=== PATIENT | female | born 1960 ===

== ENCOUNTER → 2020-05-20 | Outpatient (CLI) | payer OTHER ==
[~2020-05-20] VITALS: Ht 167.6 cm; Wt 65.8 kg
[~2020-05-20] MED LIST: APAP W/CODEINE1 TA2 PO; DULOXETINE HCL30 MG PO; ESOMEPRAZOLE MA40 MG PO; INDOMETHACIN 5050 M1 PO; LASIX 40 MG TAB40 MG PO; SPIRONOLACTONE100 M1 PO; VALIUM5 MG PO
[2020-05-20 14:12] VITALS: BP 117/81
--- NOTE | 2020-05-20 14:48 | NUR ---
Pain Clinic Assessment: 1. History of Osteoarthritis: NONE History of Rheumatoid Arthritis: NONE 2. Height: 5 ft. 6 in. 167.6 cm. Weight: 145.0 lb. oz. 65.772 kg. Patient's BMI: 23.4 3. Vital Signs: BP: 117/81 Pulse: 83 Resp: 14 Temp: 02 Sat: 100 ECG Mon: 4. Pain Intensity: 5-6 5. Fall Risk: Dizziness: N Needs help standing or walking: N Fallen in the last 3 months: N Fall risk comments: 6. Patient on Blood Thinner: None 7. History of Hypertension: N 8. Opioid Therapy greater than 6 weeks: N Opiate Contract Signed: 9. Risk Assessment Tool Provided: 10. Functional Assessment Tool: 11. Recreational Drug Use: Never Drug Type: Tobacco Use: Current Every Day Smoker Tobacco Type: Cigarettes Amount or Packs/day: 0.5 How Many Years: 40 Alcohol Use: No Frequency: Quant:
--- NOTE | 2020-05-21 11:53 | HPC ---
[facility] [place] [address] [address] PAIN MANAGEMENT CONSULTATION Name: EBONI CONNER Room #: REG RADHA PrinceJerelHilariaJerel#: [id number] Admission: 05/20/20 Attend Phys: Curt Howard DO Discharge: Date of : 60 Report #: [id number] THIS REPORT FOR: cc: AMARILIS BAUMAN Physician not on staff Curt Howard DO ~ DATE OF SERVICE: 05/20/2020 REFERRING PHYSICIAN: Domingo Ruiz MD; [facility]surgery [facility]. CHIEF COMPLAINT: Right thoracic pain. HISTORY OF PRESENT ILLNESS: As you know, the patient is a 60-year-old female who reports acute onset of mid thoracic pain that occurred 04/13/2019. The patient states she sustained a slip and fall injury at work. She was found to have thoracic compression fractures and underwent injection therapies with Dr. Ramirez with minimal benefit. She underwent radiofrequency lesioning, but reports that she did not undergo medial branch nerve blocks prior to the lesioning procedure. She ultimately underwent thoracic kyphoplasty at T10 in January with no improvement in symptoms. She sought further evaluation through Neurosurgery per the request of Dr. Ramirez. The patient states that she has trialed all available conservative treatment options including physical therapy. She is currently in an Jolon thoracic brace, which does afford her some improvement in symptoms. She has been referred to our service to discuss the potential for treating right thoracic pain that remains. There is a question of whether or not the facet joints at the T7 through T10 level may be the source of her symptoms on the right side. The patient indicates today her pain is steady with intermittent exacerbations and periodic increase in pain. She describes the pain as shooting, cramping, crushing and stabbing, places current pain score 4/10, daily average of 4-5/10, worst pain has been is 10/10. The patient states that pain is exacerbated with standing, sitting for any length of time or walking, improves with lying down and the use of diazepam for her reported muscle spasming. She has been referred to our service to discuss interventional treatment options to address mid thoracic right sided pain. PAST MEDICAL HISTORY: 1. Chronic liver disease. 2. Osteoporosis. 3. Muscle spasms. PAST SURGICAL HISTORY: 1. Herniorrhaphy 2017. 2. section in 1989 and 1993. 3. T10 kyphoplasty. [address] [address] PAIN MANAGEMENT CONSULTATION Name: EBONI CONNER Room #: REG RADHA Quynh#: [id number] Admission: 05/20/20 Attend Phys: Curt Howard DO Discharge: Date of : 60 Report #: [id number] SOCIAL HISTORY: The patient smokes half a pack of tobacco per day and has done so for greater than 40 years. Denies IV or illicit drug use. Denies any chronic alcohol use. 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 She is on workmen's compensation. She is in litigation in regard to her symptoms. She is unaccompanied at today's visit. REVIEW OF SYSTEMS: Positive for weight change, fatigue and weakness, depression, muscle spasms, chronic right mid thoracic pain. All other review of systems negative per 12-point review of systems other than those listed in history of present illness. Pain impact score of 14/70 indicating mild interference of daily activities secondary to pain. ALLERGIES: OPIOID MEDICATIONS. CURRENT MEDICATIONS: Spironolactone 100 mg once a day, furosemide 40 mg once a day, indomethacin 50 mg once a day, omeprazole 40 mg once a day, duloxetine 30 mg once a day, diazepam 5 mg p.r.n., Tylenol No. 3 with Codeine 1 tab every 8 hours p.r.n. for pain. IMAGING: MRI of the thoracic spine obtained 04/24/2020 shows mild chronic compression fractures at T4 and T7 without significant height loss. There is a chronic compression fracture at T8 resulting in approximately 60% height loss. There is minimal retropulsion without significant adjacent spinal canal narrowing. There is a vertebral augmentation at T10 with restored right side T10 vertebral body height, approximately 33% loss of left side height. There is mild retropulsion of the fracture resulting in mild narrowing of the spinal cord. There is chronic compression fracture at T11 resulting in about 50% height loss. No significant associated retropulsion. No acute fractures in the thoracic vertebrae. There is Schmorl's nodes present involving the superior endplate of T7, inferior endplate of T8, inferior endplate of T11, inferior endplate of T12 and the superior endplate of L1. No osteolytic lesions noted. There is dextroscoliosis of the thoracic spine noted. PHYSICAL EXAMINATION: VITAL SIGNS: Blood pressure 117/81, pulse 83, respiratory rate 14 and unlabored. The patient is 100% on room air. Height 5 feet 6 inches tall, weight 145 pounds, BMI calculated 23.4. GENERAL: Well-developed, well-nourished, well-hydrated 60-year-old female appearing her stated age. She is in no acute distress, awake, alert and oriented x 3. Current pain score is rated at 5-6/10. HEENT: Normocephalic, atraumatic. Pupils are round, and responsive. The patient deemed a good historian. She is wearing a mask in compliance with COVID-[address] [facility] [address] [place] [address] PAIN MANAGEMENT CONSULTATION Name: EBONI CONNER Room #: REG [facility] Juan.#: [id number] Admission: 05/20/20 Attend Phys: Curt Howard DO Discharge: Date of : 60 Report #: [id number] LUNGS: Appear clear, though there is a prolonged expiratory phase. CARDIOVASCULAR: Regular. No appreciable gallop, no rub. ABDOMEN: Soft, nontender. EXTREMITIES: Show no clubbing, no cyanosis, and no edema. MUSCULOSKELETAL: Upper and lower extremity strength appears equal and symmetrical 5/5. Muscle bulk and tone is equal and symmetrical in comparing upper extremities and the lower extremities. She is intact to light touch from T1 through T12 dermatomes. Reflexes appear 2+/4 at biceps, brachioradialis and triceps, again 2+/4 at patella and Achilles. There is tenderness to palpation over the right mid thoracic area. There is Jolon thoracic brace in place. There is moderate thoracic kyphosis noted upon removal of the thoracic brace. There is tenderness to palpation from the right mid thoracic area towards the medial scapula on the right. Deep palpation in area causes intensification of pain consistent with myofascial symptoms. ASSESSMENT: 1. Chronic thoracic pain. 2. Myofascial pain. PLAN: 1. Based on today's physical exam and the history the patient has provided, the description the patient uses in regard to pain, it would appear her symptoms may be related to the facet joints at T7, T8 and T9 with possible addition of T10. The patient has difficulty locating the specific source of symptoms as she has palpatory tenderness throughout the distribution of these vertebral bodies, specifically over the lateral of the transverse processes and out on the associated ribs. Her symptoms based on her descriptors and distribution does not appear to be radicular in origin. I do not believe there is any costal nerve root impingement as the patient does not describe the symptoms in a neuropathic fashion. The distribution is more myofascial in origin consistent with facet arthropathy of the thoracic spine and myofascial underlying discomfort. We discussed with the patient the treatment options we have available. Following was discussed with the patient today. We discussed physical therapy, stretching exercises and core strengthening techniques as well as treatment to address the accentuated thoracic kyphosis the patient is noted to have. We discussed suggestions in medication management to utilize either neuropathic pain medication such as amitriptyline, nortriptyline, Cymbalta, Lyrica or gabapentin to address symptoms directly as well as the patient could discuss with her PCP about initiating an anxiolytic such as diazepam, which apparently the patient reported as effective. We discussed the injections that Dr. Ruiz requested, which are the intra-articular facet injections on the right side to address level T7, T8, T9 and possibly T10. We also discussed surgical options, though given the findings on physical exam and the lack of any major findings at the level, I do not feel this is a treatment option. After reviewing risks and benefits of all proposed treatment options, [address] [address] PAIN MANAGEMENT CONSULTATION Name: EBONI CONNER Room #: REG RADHA Beauchamp#: [id number] Admission: 05/20/20 Attend Phys: Curt Howard DO Discharge: Date of : 60 Report #: [id number] the patient chose to move forward with the intra-articular facet injections. We discussed with the patient that [employer] pay[employer] restrictions require that authorization be obtained before the patient could undergo right T7, T8, T9, T10, facet injections. We will begin the authorization process and have the patient return once this has been approved. We are hopeful that we will have this authorization quickly and be able to provide these to the patient in a timely manner. 2. No medication changes made at today's visit. We did make suggestions in medication management, but the patient will need a primary care physician to fill those therapies. She does report the diazepam was very effective at providing benefit for her back symptoms, which is consistent with myofascial pain. I have no concern that the patient remain on diazepam, though she will need to receive these through her primary care physician or her workmen's compensation physician. 3. We will see the patient back in followup visit for the injections proposed by Dr. Ruiz in hopes of improving pain in this patient's case. We are hopeful we will obtain long-term benefit with these procedures. 4. We wish to thank Dr. Ruiz for the referral of this patient to our clinic. We will keep you apprised of her response to treatment as we address thoracic facet arthropathy and overlying myofascial pain. Again, we wish to thank you for the opportunity to see the patient in consultation. <ELECTRONICALLY SIGNED> By: Curt Howard DO 05/21/20 1153 [id number] 1704 Curt Howard DO /nt
== END ==
LOC: PAIN 05-14 10:50
PROVIDERS: ATTEND Anesthesiology Pain Medicine
DX: M54.6 Pain in thoracic spine (principal); M79.10 Myalgia, unspecified site; Z88.8 Allergy status to other drugs, medicaments and biological substances; Z79.899 Other long term (current) drug therapy

== ENCOUNTER → 2020-06-03 | Outpatient (CLI) | payer OTHER ==
[~2020-06-03] VITALS: Ht 167.6 cm; Wt 73.0 kg
[2020-06-03 11:05] VITALS: BP 109/81
--- NOTE | 2020-06-03 11:17 | NUR ---
Pain Clinic Assessment: 1. History of Osteoarthritis: NONE History of Rheumatoid Arthritis: NONE 2. Height: 5 ft. 6 in. 167.6 cm. Weight: 161.0 lb. oz. 73.029 kg. Patient's BMI: 26.0 3. Vital Signs: BP: 109/81 Pulse: 84 Resp: 16 Temp: 02 Sat: 98 ECG Mon: 4. Pain Intensity: 4 5. Fall Risk: Dizziness: N Needs help standing or walking: N Fallen in the last 3 months: N Fall risk comments: 6. Patient on Blood Thinner: None 7. History of Hypertension: N 8. Opioid Therapy greater than 6 weeks: N Opiate Contract Signed: 9. Risk Assessment Tool Provided: 10. Functional Assessment Tool: 11. Recreational Drug Use: Never Drug Type: Tobacco Use: Current Every Day Smoker Tobacco Type: Cigarettes Amount or Packs/day: 1/2 PACK How Many Years: Alcohol Use: No Frequency: Quant:
--- NOTE | 2020-06-04 10:35 | HPC ---
[facility] [place] [address] PAIN MANAGEMENT CONSULTATION Name: EBONI CONNER Room #: REG RADHA MartinezJerel#: [id number] Admission: 06/03/20 Attend Phys: Curt Howard DO Discharge: Date of : 60 Report #: [id number] THIS REPORT FOR: cc: AMARILIS BAUMAN Physician not on staff Curt Howard DO ~ DATE OF SERVICE: 06/03/2020 CHIEF COMPLAINT: Right thoracic pain. HISTORY OF PRESENT ILLNESS: As you know, the patient is a 60-year-old female reporting acute onset of mid thoracic pain occurred on 04/13/2019. The patient states she sustained a slip and fall injury at work. She was found to have thoracic compression fractures, underwent an injection therapies with Dr. Ramirez with minimal benefit. She underwent radiofrequency lesioning, but reports that she did not undergo medial branch nerve blocks prior to lesioning procedure. She states no improvement in symptoms with that treatment. She was placed in the Vandiver brace and discharged back to her PCP for further evaluation. The patient sought evaluation with Dr. Ruiz who referred the patient on to our clinic to trial facet injections of the T8, T9 and T10 levels to determine if her source of symptoms are related to the facet joints. She returns today with authorization to undergo T8, T9 and T10 facet injections on the right side. ALLERGIES: OPIOID MEDICATIONS. CURRENT MEDICATIONS: Spironolactone 100 mg once a day, furosemide 40 mg once a day, indomethacin 50 mg once a day, omeprazole 40 mg once a day, duloxetine 30 mg once a day, diazepam 5 mg p.r.n., Tylenol No. 3 with Codeine one tablet every 8 hours p.r.n. pain. SOCIAL HISTORY: The patient smokes half pack tobacco per day, has done so for greater than 40 years. Denies IV or illicit drug use. Denies any chronic alcohol use. 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 She is unaccompanied today. IMAGING: No new imaging available. PHYSICAL EXAMINATION: VITAL SIGNS: Blood pressure 109/81, pulse is 84, respiratory rate 16 and unlabored. The patient 98% on room air. Height 5 feet 6 inches tall, weight 161 pounds and BMI calculated 26.0. GENERAL: Well-developed, well-nourished, well-hydrated 60-year-old female appearing stated age, pain is rated today 4/10. HEENT: Normocephalic and atraumatic. The patient is wearing a mask in compliance with COVID-19 regulations. EXTREMITIES: Show no clubbing, no cyanosis, and no edema. [address] [address] PAIN MANAGEMENT CONSULTATION Name: EBONI CONNER [id number] Admission: 06/03/20 Attend Phys: Curt Howard DO Discharge: Date of : 60 Report #: [id number] MUSCULOSKELETAL: Intact to light touch from T1 through T12 dermatomes. Reflexes appear equal and symmetrical in upper and lower extremities. The patient is not wearing an Vandiver brace today, moderate thoracic kyphosis noted. Palpatory tenderness over the right mid thoracic area consistent with the patient's pains area. ASSESSMENT: 1. Chronic thoracic pain. 2. Myofascial pain. 3. Chronic intractable pain. PLAN: 1. The patient returns today in followup visit having received authorization to undergo right T8, T9 and T10 intra-articular facet injections per the request of her neurosurgeon. The patient and I discussed at length today the risks and the benefits of this procedure. These risks include but are not necessarily limited to bleeding, bruising, infection, worsening pain, no relief of pain, also risk of temporary or permanent muscle weakness, temporary or permanent nerve damage, possible paralysis and . The patient states understood and wished to proceed. 2. No medication changes made at today's visit. The patient will continue current medical therapy as prior prescribed. 3. We plan to see the patient back in followup visit on an as needed basis for possible next in the series of intra-articular facet injections. We are hopeful the patient will see good and prolonged benefit with today's procedure. PROCEDURE NOTE DESCRIPTION OF PROCEDURE: Right T8, T9, T10 intra-articular facet injections under fluoroscopic guidance. After obtaining written consent, the patient was taken back to fluoroscopy suite, placed in prone position with a pillow under the chest to accentuate the thoracic kyphosis. The skin overlying the thoracic area was then prepped and draped in aseptic fashion. The T8 facet joint, T9 facet joint and the T10 facet joint on the right side were visualized under AP fluoroscopy with a caudal angulation. Skin and subcutaneous tissue overlying target sites of injections were then anesthetized with 2 mL of 1% lidocaine at each site utilizing a 27-gauge 1-1/4 inch needle. Three 22-gauge 3-1/2 inch spinal needles with bent tips were advanced under fluoroscopic guidance using a superior, inferior, lateral to medial approach to the facet joint. This was done under fluoroscopic guidance. The firm posterior capsules had their characteristic feels and the needles were then advanced into the facet joint, but not into the articular cartilage. After negative aspiration for heme, 1.5 mL of a solution containing 2 mL 40 mg per mL, 80 mg [facility] [address] [place] [address] PAIN MANAGEMENT CONSULTATION Name: ARGENTINA CONNERJORIE Room #: REG [facility] Quynh#: [id number] Admission: 06/03/20 Attend Phys: Curt Howard DO Discharge: Date of : 60 Report #: [id number] total triamcinolone and 3 mL of bupivacaine 0.5% was injected slowly. Needle retracted mcfp, flushed with 1 mL of 1% lidocaine and removed. Sterile bandage placed over each of the injection sites. There were no new motor deficits present in the upper or lower extremities following procedure. The patient tolerated the procedure well, carefully escorted to recovery room in stable condition. No apparent complications. VAS before procedure rated at 4/10, VAS 10 minutes after procedure 0/10. After meeting our discharge criteria, the patient discharged home. <ELECTRONICALLY SIGNED> By: Curt Howard DO 06/04/20 1035 [id number] 1505 Curt Howard DO /nt
== END | disposition home or self-care (01) ==
LOC: PAIN 06:42
PROVIDERS: ATTEND Anesthesiology Pain Medicine
DX: M54.6 Pain in thoracic spine (principal); M79.18 Myalgia, other site; G89.29 Other chronic pain; F17.210 Nicotine dependence, cigarettes, uncomplicated; Z98.890 Other specified postprocedural states; Z79.899 Other long term (current) drug therapy; Z88.8 Allergy status to other drugs, medicaments and biological substances; Z79.891 Long term (current) use of opiate analgesic

== ENCOUNTER → 2020-07-15 | Outpatient (CLI) | payer OTHER ==
[~2020-07-15] MED LIST changes: +NABUMETONE 500500 M2 PO; +ZANAFLEX2 M1 PO
--- NOTE | 2020-07-15 12:38 | NUR ---
Pain Clinic Assessment: 1. History of Osteoarthritis: NONE History of Rheumatoid Arthritis: NONE 2. Height: ft. in. cm. Weight: lb. oz. kg. Patient's BMI: 3. Vital Signs: BP: Pulse: Resp: Temp: 02 Sat: ECG Mon: 4. Pain Intensity: 4 5. Fall Risk: Dizziness: N Needs help standing or walking: N Fallen in the last 3 months: N Fall risk comments: 6. Patient on Blood Thinner: None 7. History of Hypertension: N 8. Opioid Therapy greater than 6 weeks: N Opiate Contract Signed: 9. Risk Assessment Tool Provided: 10. Functional Assessment Tool: 11. Recreational Drug Use: Never Drug Type: Tobacco Use: Current Every Day Smoker Tobacco Type: Cigarettes Amount or Packs/day: 1/2 PACK How Many Years: Alcohol Use: No Frequency: Quant:
--- NOTE | 2020-07-29 07:49 | HPC ---
[facility] [place] [address] PAIN MANAGEMENT CONSULTATION Name: EBONI CONNER Room #: REG RADHA Beauchamp#: [id number] Admission: 07/15/20 Attend Phys: Curt Howard DO Discharge: Date of : 60 Report #: [id number] THIS REPORT FOR: cc: AMARILIS BAUMAN Physician not on staff Curt Howard DO ~ DOC #: [id number] cc: MD Curt Davey DO DATE OF SERVICE: 07/15/2020 REFERRING PHYSICIAN: Moris Morin MD CHIEF COMPLAINT: Right thoracic pain. HISTORY OF PRESENT ILLNESS: As you know, the patient is a very pleasant 60-year-old female who has undergone injection to address facet arthropathy pain at T8, T9 and T10. She reports that procedure provided improvement in symptoms of approximately 50%, lasting for a couple of weeks. She returns today in followup visit to undergo the next in the series. Unfortunately, she has planned to undergo COVID-19 injection tomorrow, which precludes us from providing the injection today. She returns to discuss scheduling for the next available appointment. The patient could undergo facet injections at the thoracic level. The patient is placing her current pain score around 4/10. Unfortunately, her symptoms recurred without inciting injury or trauma. ALLERGIES: OPIOID MEDICATIONS. CURRENT MEDICATIONS: See chart. SOCIAL HISTORY: The patient continues to smoke half pack of tobacco per day, has done so for greater than 40 years. Denies IV or illicit drug use. Denies any chronic alcohol use. She is unaccompanied today. IMAGING: No new imaging available. PHYSICAL EXAMINATION: GENERAL: Well-developed, well-nourished, well-hydrated 60-year-old female appearing stated age. Pain is rated today at anywhere from 4-5/10. HEENT: Normocephalic, atraumatic. Pupils equal, round and responsive. The patient is wearing a mask in compliance with COVID-19 regulations. EXTREMITIES: Show no clubbing, no cyanosis. No appreciable edema. MUSCULOSKELETAL: Upper extremity strength equal and symmetrical 5/5, intact to light touch from T1 to T12 dermatomes. ASSESSMENT: [address] [address] PAIN MANAGEMENT CONSULTATION Name: EBONI CONNER Room #: REG [facility].#: [id number] Admission: 07/15/20 Attend Phys: Curt Howard DO Discharge: Date of : 60 Report #: [id number] 1. Chronic thoracic pain. 2. Myofascial pain. 3. Chronic intractable pain. PLAN: 1. The patient returns today in followup visit to undergo a thoracic facet injection to address right upper back pain. Unfortunately, the patient has plans to undergo COVID-19 injection tomorrow, which precludes the patient from receiving steroid medications for 2 weeks. We will plan to have the patient follow up with us in 2 weeks for treatment. We will keep you apprised of her response to that therapy once it has been provided. We are hopeful the patient will once again see improvement in symptoms, but for a prolonged period of time. 2. The patient will be started on nabumetone 500 mg dose 1 tab p.o. t.i.d. given the patient #90 tablets, advised the patient to watch for side effects of dyspepsia, worsening of blood pressure, lower extremity edema with her use. If no side effects, the patient is to continue the medication as directed. 3. We will see the patient back for a followup visit in approximately 2 weeks. At that time, review the efficacy of the medications and discuss the proposed intra-articular facet injections. Curt Howard DO JESelin/ANN/MARLONE <ELECTRONICALLY SIGNED> By: Curt Howard DO 07/29/20 0749 0908 0229 Curt Howard DO /nt
== END ==
LOC: PAIN 07-08 13:17
PROVIDERS: ATTEND Anesthesiology Pain Medicine
DX: M54.6 Pain in thoracic spine (principal); G89.29 Other chronic pain; M79.10 Myalgia, unspecified site; Z88.8 Allergy status to other drugs, medicaments and biological substances; Z79.899 Other long term (current) drug therapy

== ENCOUNTER → 2020-07-29 | Outpatient (CLI) | payer OTHER ==
[~2020-07-29] VITALS: Ht 167.6 cm; Wt 68.9 kg
[2020-07-29 10:07] VITALS: BP 114/77
--- NOTE | 2020-07-29 10:28 | NUR ---
Pain Clinic Assessment: 1. History of Osteoarthritis: NONE History of Rheumatoid Arthritis: NONE 2. Height: 5 ft. 6 in. 167.6 cm. Weight: 152.0 lb. oz. 68.947 kg. Patient's BMI: 24.5 3. Vital Signs: BP: 114/77 Pulse: 87 Resp: 16 Temp: 02 Sat: 100 ECG Mon: 4. Pain Intensity: 5-6 5. Fall Risk: Dizziness: N Needs help standing or walking: N Fallen in the last 3 months: N Fall risk comments: 6. Patient on Blood Thinner: None 7. History of Hypertension: N 8. Opioid Therapy greater than 6 weeks: N Opiate Contract Signed: 9. Risk Assessment Tool Provided: LOW-3 10. Functional Assessment Tool: 11. Recreational Drug Use: Never Drug Type: Tobacco Use: Current Every Day Smoker Tobacco Type: Cigarettes Amount or Packs/day: 1/2 PACK How Many Years: Alcohol Use: No Frequency: Quant:
--- NOTE | 2020-08-05 09:27 | HPC ---
[facility] [place] [address] [address] [place] [address] PAIN MANAGEMENT CONSULTATION Name: EBONI CONNER Room #: REG RADHA Martinez.#: [id number] Admission: 07/29/20 Attend Phys: Curt Howard DO Discharge: Date of : 60 Report #: [id number] THIS REPORT FOR: cc: AMARILIS BAUMAN Physician not on staff Curt Howard DO ~ DOC #: [id number] DATE OF SERVICE: 07/29/2020 REFERRING PHYSICIAN: Moris Morin MD CHIEF COMPLAINT: Right thoracic pain. HISTORY OF PRESENT ILLNESS: As you know, the patient is a very pleasant 60-year-old female who has undergone treatment at our services per the request of her neurosurgery team with right T8, T9 and T10 facet injections with good benefit, unfortunately, her symptoms reoccurred. She denies injury or trauma. She was seen in consultation 07/15/2020. At that time, she was undergoing COVID-19 injections, which precludes us from providing steroids until 2 weeks have beyond the last injection. She returns today to undergo right T8, T9, T10 intra-articular facet injections to address recurrent back pain. She is placing her pain today at around 6/10. She describes the pain as shooting, cramping, stabbing and intermittent in nature, exacerbated with sitting, walking, improves with medications. She denies injury or trauma that led to recurrence of symptoms. ALLERGIES: OPIOID. CURRENT MEDICATIONS: See chart. SOCIAL HISTORY: The patient continues to smoke half pack tobacco per day, has done so for greater than 40 years. Denies IV or illicit drug use. Denies any chronic alcohol use. She is unaccompanied today. IMAGING: No new imaging is available. PHYSICAL EXAMINATION: VITAL SIGNS: Blood pressure 114/77, pulse 87, respiratory rate 16 and unlabored. The patient is 100% on room air. Height 5 feet 6 inches tall, weight 152 pounds, BMI calculated 24.9. GENERAL: Well-developed, well-nourished, well-hydrated kyphotic 60-year-old female appearing stated age. She is placing current pain score at around 6/10. HEENT: Normocephalic, atraumatic. Extraocular muscles are intact. The patient is wearing a level 1 face mask in compliance with COVID-19 regulations. EXTREMITIES: Show no clubbing, no cyanosis, no edema. [address] [address] PAIN MANAGEMENT CONSULTATION Name: EBONI CONNER [id number] Admission: 07/29/20 Attend Phys: Curt Howard DO Discharge: Date of : 60 Report #: [id number] MUSCULOSKELETAL: Upper extremity strength remains symmetrical 5/5 intact to light touch from T1 through T12 dermatomes. There is palpatory tenderness noted over the paraspinal musculature of the right mid thoracic area consistent with the T8, T9 and T10 levels. ASSESSMENT: 1. Chronic thoracic pain. 2. Myofascial pain. 3. Vertebral compression fracture, status post kyphoplasty with residual pain. 4. Chronic intractable pain. PLAN: 1. The patient returns today in followup visit having completed her COVID-19 injections 2 weeks ago in preparation to undergo right T8, T9 and T10 intraarticular facet injections per the request of her neurosurgery team. She has done very well with the previous injections, but unfortunately her symptoms did reoccur. She returns today per the request to undergo the second in the series. The patient has been advised the risks and benefits of the procedure, states understood and wished to proceed. 2. No medication changes made at today's visit. The patient will continue current medical therapy as prior prescribed. 3. The patient will be following up with her neurosurgery team as they have requested the patient undergo CT examination, so that they can review whether or not the vertebral augmentation procedure and the subsequent extravasation of methyl methacrylate may be causing nerve root impingement and irritation, they also wish to determine whether or not foraminal stenosis has occurred. She will keep us apprised when she undergoes the imaging study. We will review those findings once they are available. She has plans to undergo that procedure once neurosurgery has provided the referral. We are hopeful that this imaging study will be done quickly. We will review those findings and determine whether or not we can assist in pain control. 4. We plan to see the patient back in followup visit on an as needed basis for the next in the series of right intraarticular facet injections to address thoracic pain. PROCEDURE NOTE DESCRIPTION OF PROCEDURE: Right T8, T9 and T10 intraarticular facet injections under fluoroscopic guidance. After obtaining written consent, the patient was taken back to fluoroscopy suite, placed in a prone position with pillow under the chest to accentuate the thoracic kyphosis and to facilitate entry into the facet joints. Skin overlying the thoracic area was then prepped and draped in aseptic fashion using chlorhexidine. The T8, T9 and T10 facet joints on the right side were visualized under AP fluoroscopy with slight caudal angulation of the [address] [address] PAIN MANAGEMENT CONSULTATION Name: EBONI CONNER Room #: JACOB Beauchamp#: [id number] Admission: 07/29/20 Attend Phys: Curt Howard DO Discharge: Date of : 60 Report #: [id number] fluoroscope. The skin and subcutaneous tissue overlying the target site of injection were anesthetized with 3 mL 1% lidocaine with utilizing 1 mL at each site. Three 22-gauge 3-1/2 inch spinal needles with bent tips were advanced under fluoroscopic guidance using a superior, inferior, lateral to medial approach to the facet joint. This was done under direct fluoroscopic imaging and guidance. The firm posterior capsules at each of the sites at T8, T9 and T10 had their characteristic feels when the needles were then advanced through the capsule and into the facet joint, but not into the articular cartilage. After negative aspiration for heme, 1.5 mL of a solution containing 2 mL, 40 mg per mL 80 mg total triamcinolone and 3 mL of bupivacaine 0.5% injected slowly. [place] were retracted long term flushed with 1 mL of 1% lidocaine and then removed. Sterile bandage placed over injection site. No new motor deficits present in the upper or lower extremities, following procedure. The patient tolerated the procedure well, carefully escorted to recovery room in stable condition. No apparent complications. After meeting discharge criteria, the patient discharged home. Curt Howard DO JEJ/MARYSE <ELECTRONICALLY SIGNED> By: Curt Howard DO 08/05/20 0927 [id number] Curt Howard DO /omid
== END | disposition home or self-care (01) ==
LOC: PAIN 08:11
PROVIDERS: ATTEND Anesthesiology Pain Medicine
DX: M54.6 Pain in thoracic spine (principal); M47.814 Spondylosis without myelopathy or radiculopathy, thoracic region; G89.29 Other chronic pain; M79.18 Myalgia, other site; F17.210 Nicotine dependence, cigarettes, uncomplicated; Z98.890 Other specified postprocedural states; Z79.899 Other long term (current) drug therapy

== ENCOUNTER → 2020-12-30 | Outpatient (CLI) | payer OTHER ==
[~2020-12-30] VITALS: Ht 167.6 cm; Wt 67.9 kg
[2020-12-30 14:33] VITALS: BP 115/70
--- NOTE | 2020-12-30 14:48 | NUR ---
Pain Clinic Assessment: 1. History of Osteoarthritis: NONE History of Rheumatoid Arthritis: NONE 2. Height: 5 ft. 6 in. 167.6 cm. Weight: 149.8 lb. oz. 67.949 kg. Patient's BMI: 24.2 3. Vital Signs: BP: 115/70 Pulse: 88 Resp: 16 Temp: 02 Sat: 100 ECG Mon: 4. Pain Intensity: 6 5. Fall Risk: Dizziness: N Needs help standing or walking: N Fallen in the last 3 months: Y Fall risk comments: 6. Patient on Blood Thinner: None 7. History of Hypertension: N 8. Opioid Therapy greater than 6 weeks: N Opiate Contract Signed: 9. Risk Assessment Tool Provided: LOW-3 10. Functional Assessment Tool: 11. Recreational Drug Use: Never Drug Type: Tobacco Use: Current Every Day Smoker Tobacco Type: Cigarettes Amount or Packs/day: 1/2 PACK How Many Years: Alcohol Use: No Frequency: Quant:
--- NOTE | 2021-01-06 09:13 | HPC ---
[facility] [place] [address] [place] [address] PAIN MANAGEMENT CONSULTATION Name: EBONI CONNER Room #: REG RADHA Beauchamp#: [id number] Admission: 12/30/20 Attend Phys: Curt Howard DO Discharge: Date of : 60 Report #: [id number] THIS REPORT FOR: cc: HEIDI MARIO Physician not on staff Curt Howard DO ~ cc: Moris Morin DATE OF SERVICE: 12/30/2020 REFERRING PHYSICIAN: Dr. Moris Morin. CHIEF COMPLAINT: Right thoracic pain. HISTORY OF PRESENT ILLNESS: As you know, the patient is a very pleasant 60-year-old female, who has undergone intra-articular facet injections at T8, T9 and T10 with excellent benefit. The most recent injection series provided to address the patient's symptoms, gave her 100% improvement in overall pain, lasting for almost 7 weeks. She has had a slow and progressive return of symptoms. She is now placing her pain score at 6/10. She denies new injury, new trauma or any changes in medication management since our last visit. She returns today in followup visit to undergo right T8, T9 and T10 intra-articular facet injections in hopes of reobtained analgesic benefit. ALLERGIES: OPIOID MEDICATIONS. CURRENT MEDICATIONS: See chart. SOCIAL HISTORY: The patient continues to smoke approximately half pack tobacco per day and has done so for greater than 40 years. Denies IV or illicit drug use. Denies any chronic alcohol use. She is unaccompanied at today's visit. IMAGING: No new imaging available. PHYSICAL EXAMINATION: VITAL SIGNS: Blood pressure is 115/70, pulse 88, respiratory rate 16 and unlabored. The patient 100% on room air. Height 5 feet 6 inches tall, weight 149.8 pounds, BMI calculated 24.2. GENERAL: A well-developed, well-nourished, well-hydrated kyphotic 60-year-old female, appears her stated age, placing current pain score at 6/10. HEENT: Normocephalic, atraumatic. Pupils equal, round and responsive. She is wearing a mask in compliance with COVID-19 regulations at this hospital. EXTREMITIES: Show no clubbing, no cyanosis. No appreciable edema. MUSCULOSKELETAL: The patient remains intact to light touch from T1-T12 dermatomes. Upper extremity strength is equal and symmetrical 5/5. Muscle bulk and tone is equal and symmetrical in comparing upper extremities. There is palpatory tenderness over the right mid thoracic area. No ecchymosis, [place] [address] PAIN MANAGEMENT CONSULTATION Name: EBONI CONNER Room #: REG [facility] AlekJerel#: [id number] Admission: 12/30/20 Attend Phys: Curt Howard DO Discharge: Date of : 60 Report #: [id number] rashtati, no lesions. ASSESSMENT: 1. Chronic thoracic facet pain. 2. Myofascial pain. 3. Chronic intractable pain. PLAN: 1. The patient returns today in followup visit having noted excellent benefit with intra-articular facet injections provided at the right T8, T9 and T10 levels. She reports improvement in symptoms lasting for greater than 7 weeks. She returns today in followup visit having received authorization to undergo right T8, T9, T10 intra-articular facet injections in hopes of gaining a similar analgesic benefit. The patient has been advised risks and benefits of this procedure, states understood and wished to proceed. 2. No medication changes made at today's visit. The patient will continue current medical therapy as prior prescribed. 3. I plan to see the patient back in followup visit on an as needed basis. We are hopeful the patient will once again see good and prolonged benefit with the procedure performed today. PROCEDURE NOTE: DESCRIPTION OF PROCEDURE: Right T8, T9, and T10 intraarticular facet injections under fluoroscopic guidance. After obtaining written consent, the patient was taken back to fluoroscopy suite, placed in a prone position with pillow under the chest to accentuate thoracic kyphosis. Skin overlying the thoracic area was then prepped and draped in aseptic fashion. The T8 facet joint, the T9 facet joint and the T10 facet joint on the right side were visualized under AP fluoroscopy with a caudal angulation to optimize imaging position. Skin and subcutaneous tissue overlying target site of injection was then anesthetized with 1 mL of 1% preservative-free lidocaine at each site, utilizing a 27-gauge 1-1/4-inch needle to provide these injections. Three 22-gauge 3-1/2 inch spinal needles with bent tips were advanced under fluoroscopic guidance using a superior, inferior, lateral to medial approach to look towards the facet joint. Imaging was obtained to confirm position of the needles prior to entering the facet joints. The firm posterior capsules had their characteristic feels once the needles were advanced. These needles were then advanced into the facet joint, but not into the articular cartilage. After negative aspiration for heme, 1.5 mL of a solution containing 2 mL, 40 mg per mL 80 mg total triamcinolone along with 3 mL bupivacaine 0.5% was injected slowly. Each of the needles were retracted long-term flushed with 1 mL of 1% lidocaine and removed. Sterile bandage placed over injection site. There were no [address] [address] PAIN MANAGEMENT CONSULTATION Name: EBONI CONNER Room #: REG [facility] Quynh#: [id number] Admission: 12/30/20 Attend Phys: Curt Howard DO Discharge: Date of : 60 Report #: [id number] deficits present in the upper or lower extremities following procedure. The patient tolerated the procedure well, carefully escorted to recovery room in stable condition. No apparent complications. VAS before procedure rated at 6/10, VAS 10 minutes after procedure rated at 2/10. After meeting our discharge criteria, the patient discharged home. <ELECTRONICALLY SIGNED> By: Curt Howard DO 01/06/21 0913 1502 2237 Curt Howard DO /nt
== END | disposition home or self-care (01) ==
LOC: PAIN 07:39
PROVIDERS: ATTEND Anesthesiology Pain Medicine
DX: M47.814 Spondylosis without myelopathy or radiculopathy, thoracic region (principal); M54.6 Pain in thoracic spine; G89.29 Other chronic pain; F17.210 Nicotine dependence, cigarettes, uncomplicated; Z98.890 Other specified postprocedural states; Z79.899 Other long term (current) drug therapy